=== PATIENT | male | born 1975 ===

== ENCOUNTER 2021-06-15 04:14 | Emergency (ER) | payer SELFPAY ==
[~2021-06-15] VITALS: Ht 177.8 cm; Wt 81.6 kg
--- NOTE | 2021-06-15 04:30 | NUR ---
Dr. Osborn at bedside for [facility]SE.
--- NOTE | 2021-06-15 04:47 | NUR ---
Patient given written and verbal discharge instructions. Patient verbalizes understanding of instructions. Patient is ambulatory with steady gait. Refuses offer of prison placement. Patient given list of available shelters in surrounding area. Pt refused to sign discharge paperwork.
[2021-06-15 04:49] VITALS: BP 140/84
== END 2021-06-15 04:49 | disposition home or self-care (01) ==
LOC: ER 04:17
DX: R53.1 Weakness (principal); F20.9 Schizophrenia, unspecified; Z59.0 Homelessness; Z86.69 Personal history of other diseases of the nervous system and sense organs; R03.0 Elevated blood-pressure reading, without diagnosis of hypertension
CPT/HCPCS: A4663